=== PATIENT | male | born 1975 | race Two or more races ===

== ENCOUNTER 2019-03-24 01:17 | Emergency (ER) | payer SELFPAY ==
[~2019-03-24] VITALS: Ht 167.6 cm; Wt 81.6 kg
[2019-03-24 05:15] LABS: Urine Amorphous Crystal FEW /hpf (None Seen); Urine Bacteria FEW /hpf (None Seen); Urine Blood Negative /uL (Negative); Urine Hyaline Cast FEW /lpf (0 - 2); Urine Mucus FEW (None Seen); Urine Specific Gravity 1.024 (1.001-1.035); Urine WBC 1 /hpf (0 - 3)
[2019-03-24 05:20] LABS: Basophils # (auto) 0 uL; Basophils % (auto) 0.1 % (0.0-2.0); Eosinophils # (auto) 0 uL; Hematocrit 40.3 % (41.0-53.0); Hemoglobin 13.6 g/dL (13.5-17.5); Lymphocytes # (auto) 0.8 uL; Lymphocytes % (auto) 6.5 % (10.0-50.0); Mean Corpuscular Hemoglobin 30.7 pg (28.0-32.0); Mean Corpuscular Hgb Conc. 33.9 g/dL (32.0-36.0); Mean Corpuscular Volume 90.6 fL (80.0-100.0); Monocytes # (auto) 0.6 uL; Monocytes % (auto) 5.4 % (0.0-12.0); Neutrophils # (auto) 10.4 uL; Platelet Count (auto) 262 10^3/uL (140-450); Red Blood Cells 4.44 10^6/uL (4.5-5.90); Red Cell Distribution Width 13.9 % (11.8-14.3); White Blood Cell 11.9 10^3/uL (4.4-10.8)
[2019-03-24] MEDS ORDERED: HYDROmorphone HCL 2 MG/ML VL IV ONE (05:45)
[2019-03-24] MEDS ORDERED: KETOROLAC TROMETH 30 MG/ML 1ML VIAL IV ONE (05:45)
[2019-03-24] MEDS ORDERED: ONDANSETRON HCL 4 MG/2 ML VIAL IV ONE (05:45)
[2019-03-24 05:47] LABS: Albumin 4.2 g/dL (3.4-5.0); BUN/Creatinine Ratio 18.9; Potassium 3.9 mmol/L (3.5-5.1)
[2019-03-24 05:50] LABS: Bilirubin, Total 0.4 mg/dL (0.2-1.0); Total Protein 8.8 g/dL (6.4-8.2)
[2019-03-24 06:09] VITALS: BP 128/86
== END 2019-03-24 06:39 | disposition home or self-care (01) ==
LOC: ER 01:17
DX: N20.1 Calculus of ureter (principal); R91.1 Solitary pulmonary nodule
CPT/HCPCS: 36415; 74176; 80053; 81001; 82150; 83690; 85025; 94761; 96374; 96375; 99284; J1170; J1885; J2405